=== PATIENT | male | born 1975 | race Caucasian/White ===

== ENCOUNTER 2017-11-15 08:39 | Emergency (ER) | payer BC ==
[~2017-11-15] VITALS: Ht 175.3 cm; Wt 83.9 kg
[2017-11-15] MEDS ORDERED: OFLOXACIN5 ML OP (12:25)
[2017-11-15] MEDS ORDERED: ULTRACET PO (12:28)
[2017-11-15] MEDS ORDERED: CLARITIN-D 241 EACH PO (12:28)
== END 2017-11-15 13:38 | disposition home or self-care (01) ==
LOC: ER 08:39
DX: H60.323 Hemorrhagic otitis externa, bilateral (principal)